=== PATIENT | male | born 1965 | race Two or more races ===

== ENCOUNTER 2025-08-01 12:52 | Outpatient (AMB) | payer OTHER, SELFPAY ==
--- NOTE | 2025-08-01 13:16 | ORTHONT_ITS ---
Vital signs 08/01/25 13:27 Height 1.73 m Height Method Stated Weight 80.428 kg Weight Measurement Method Standing Scale BMI 26.9 BP 148/89 H Blood Pressure Source Automatic Cuff Blood Pressure Location Left Upper Arm Position Sitting Respiration 18 Pulse 77 Pulse Source Monitor Temp 97.7 F Temp Source Temporal Artery Scan Pulse Oximetry (%) 98 Oxygen Delivery Method Room Air Med/Allergies Allergies & Medications Allergies No Known Allergies Allergy (Verified 08/01/25 13:28) Medication Reconciliation fenofibrate 160 mg tablet 160 mg PO QDAY 09/20/23 [History Confirmed 08/01/25] meloxicam 15 mg tablet 15 mg PO QDAY 09/20/23 [History Confirmed 08/01/25] Exam Exam Patient is in no acute distress and is cooperative with the examination today. Breathing is nonlabored. In no respiratory distress. Bilateral extremities were evaluated and demonstrates sensation intact to light touch. Palpable pedal pulses are present. No significant edema is present. Bilateral hips were examined. The patient has no pain with log roll of the hips. Internal rotation to 30 degrees and external rotation to 30 degrees is painless. Negative FADIR. The left knee was examined. The left knee is in [varus] alignment. Range of motion from [0-115] degrees. Knee is stable to varus and valgus as well as AP translation with <5mm. Patient has a [negative] Mc[place]rays. There is [no] pain with patellofemoral compression and [no] crepitus noted. The knee is [tender] to palpation [medially]. The right knee was also examined. The right knee is in [varus] alignment. Range of motion from [0-120] degrees. Knee is stable to varus and valgus as well as AP translation with <5mm. Patient has a [negative] Mc[place]rays. There is [no] pain with patellofemoral compression and [no] crepitus noted. The knee is [tender] to palpation [medially]. Assessment and Plan Problem List (1) Degenerative arthritis of knee, bilateral: Status: Acute Plan: Patient is a 57-year-old male with bilateral knee osteoarthritis. We discussed nonoperative options. He previously did well with the Synvisc injection. He brought his own Synvisc today. We are thus using his own medication We Ensured that the package was sealed. Under sterile conditions we used a alcohol prep. We injected 2 mL of Synvisc into each knee with an 18-gauge needle. The patient tolerated the procedure well. (2) Bilateral knee pain: Status: Acute Office Procedures GNS Level of Care Nursing/Assessment Patient Status: Established Patient Nursing Assessment/Reassesment: Medication Reconciliation, Update PMH in EMR and Vital Signs Coordination of Care: Complex Care and Chronic Disease 1-5, Education Complex Pt/Fam, Consent,records obtained, informed consent, Results/Orders obtained and Staff clarify orders Established Patient Charge Established Patient Point Assignment: 95 Established Patient Point Charge: EP Level 3 (80-115) Surgical Proc/IM SQ injection Minor Surgical Procedure: Yes (BILATERAL KNEE INJECTION) MA Intake Visit Data Collection New Patient or Established: Established Patient (seen at [facility] within 3 years) Reason for Visit:: BL KNEE GEL INJ FU Seen by Clinical Staff ONLY (RN/MA): No Regulatory Affairs Director Required: No PCP or OBGYN visit in last 3 months: Yes Hx Now: No Do You Feel Safe at Home: Yes Authorities Contacted: N/A Questionairres Past Medical History Past Medical History Have you ever been diagnosed with any of the following: Respiratory Problems Smoking: Yes (40 YEARS) Smoking Cessation Counseling: No Smoking Exposure: Yes Subjective Visit Visit for: follow up visit Immunization / Flu Flu Vaccine in the Last 12 Months: No Flu Vaccine Exclusion Criteria: No Exclusion Criteria History of Present Illness Chief complaint: BILATERAL KNEE GEL INJECTION FOLLOW UP Cristian? is a 59-year-old male with bilateral knee pain. Has had bilateral hyaluronic acid injections in the past and has been doing well. He would like the 1 today. He brought his own medication with me and just wants me to inject it for him. Personal History Additional comments: PATIENT BROUGHT HIS OWN SYNVISC GEL INJ X2 Pain Pain level (0-10): 4 Pain location: inside (medial) Pain quality: dull Pain timing: increases with activity Associated signs & symptoms: none Ambulatory data Ambulatory device: none Treatments Number of previous injections: 2 Improvement with previous injections: Yes Improvement with PT: No Improvement with NSAIDS: no Review of Systems Review of Systems: All systems negative unless otherwise noted in HPI.
[2025-08-01 13:27] VITALS: BP 148/89; PULSE 77; RESP 18; TEMP 36.5; O2SAT 98; BMI 26.9
== END 2025-08-01 13:36 | disposition home or self-care (01) ==
LOC: HODSRG 12:52
PROVIDERS: PCP Student in an Organized Health Care Education/Training Program; Referring Provider Student in an Organized Health Care Education/Training Program; Supervising Provider Orthopaedic Surgery Adult Reconstructive Orthopaedic Surgery; Visit Provider Orthopaedic Surgery Adult Reconstructive Orthopaedic Surgery
DX: M17.0 Bilateral primary osteoarthritis of knee (principal)
CPT/HCPCS: 20610; 99213; G0463